=== PATIENT | male | born 1940 | race Caucasian/White ===

== ENCOUNTER 2022-08-23 16:00 | Inpatient (IN) | payer SELFPAY ==
[2022-08-23 16:06] VITALS: TEMP 97; BMI 25.7
[2022-08-23 17:59] VITALS: RESP 16
[2022-08-23 18:05] LABS: BASO % 0.2 % (0-2.0); EOS % 2.9 % (0-4.5); HEMATOCRIT 34.5 % (35.4-49); HEMOGLOBIN 11.5 GM/dL (11.7-16.9); LYMPH % 25.6 % (8-40); MCH 31.2 pg (25.7-33.7); MCHC 33.2 g/dl (32.0-35.9); MEAN PLT VOLUME 9.5 fl (7.5-11.1); NEUT % 63.3 % (42.8-82.8); PLATELET COUNT 262 10^3/uL (134-434); RBC 3.68 M/mm3 (4.00-5.60); WHITE BLOOD COUNT 6.4 K/mm3 (4.0-10.0)
[2022-08-23 18:16] LABS: INR 0.9 (0.83-1.09); PROTHROMBIN TIME (PATIENT) 10.4 SEC (9.7-13.0)
[2022-08-23 18:19] LABS: ACTIVATED PTT 29.8 SECONDS (25.2-36.5)
[2022-08-23 18:27] LABS: POTASSIUM 5.1 mmol/L (3.5-5.1)
[2022-08-23 18:32] LABS: ALBUMIN 4.1 g/dl (3.4-5.0); BLOOD UREA NITROGEN 52.8 mg/dL (7-18); CALCIUM 8.6 mg/dL (8.5-10.1)
[2022-08-23 18:33] LABS: MAGNESIUM 2.2 mg/dL (1.8-2.4)
[2022-08-23 18:35] LABS: CREATININE 1.7 mg/dL (0.55-1.3)
[2022-08-23 18:37] LABS: BILIRUBIN,TOTAL 0.4 mg/dL (0.2-1); TOT PROT 6.9 g/dl (6.4-8.2)
[2022-08-23] MEDS ORDERED: SODIUM CHLORIDE 0.9% 500 ML INFUS.BAG IV ONE (18:49)
[2022-08-23 19:47] VITALS: BP 183/89; PULSE 51
== END 2022-08-23 22:00 | disposition left against medical advice (07) | DRG 201 ==
LOC: JER 16:00 → JERBED 19:32
PROVIDERS: ADMIT Internal Medicine; ATTEND Internal Medicine
DX: R00.1 Bradycardia, unspecified (principal); R00.2 Palpitations; I10 Essential (primary) hypertension; E03.9 Hypothyroidism, unspecified; N40.0 Benign prostatic hyperplasia without lower urinary tract symptoms; I44.7 Left bundle-branch block, unspecified
CPT/HCPCS: 0241U-QW; 36415; 71045-TC-FY; 80053; 83735; 84439; 84443; 84484; 85025; 85610; 85730; 86850; 86900; 86901; 93005; 93010; 99285-25